=== PATIENT | male | born 1985 | race Caucasian/White ===

== ENCOUNTER 2024-08-22 13:02 | Emergency (ER) | payer OTHER, SELFPAY ==
[2024-08-22 13:03] VITALS: BP 164/117; PULSE 102; RESP 16; TEMP 36.9; O2SAT 100; BMI 35.6
--- NOTE | 2024-08-22 13:09 | RAD_ITS ---
HISTORY: chest pain. TECHNIQUE: XR Chest 1 View. COMPARISON: None. FINDINGS: CARDIOMEDIASTINAL BORDERS: Cardiac silhouette within normal limits in size. Mediastinal contour unremarkable. LUNGS: Radiographically clear. PLEURA: No pleural effusion or pneumothorax seen. OSSEOUS STRUCTURES: Unremarkable. RAD/Chest 1 View (Portable) IMPRESSION: No acute cardiopulmonary process identified. Electronically Signed: Jamilah Price MD at 14:49 EDT ,
--- NOTE | 2024-08-22 13:09 | EKG12_ITS ---
Test Reason : CP Blood Pressure : / mmHG Vent. Rate : 108 BPM Atrial Rate : 108 BPM P-R Int : 134 ms QRS Dur : 096 ms QT Int : 342 ms P-R-T Axes : 056 056 010 degrees QTc Int : 458 ms Sinus tachycardia Otherwise normal ECG Confirmed by Pablo Horne ([id number]), editor book EMERY MACHADO ([id number]) on 08/23/2024 1:35:51 PM Referred By: Confirmed By:Pablo Horne
[2024-08-22 13:28] LABS: Absolute Lymphocyte Count 1.93 X10^3/uL (0.83-4.51); Basophil# 0.06 X10^3/uL; Basophil% 1.1 % (0-1); Eosinophil# 0.12 X10^3/uL; Eosinophils% 2.2 % (0-5); Hematocrit 47.1 % (40-54); Hemoglobin 15.5 g/dL (13.0-16.5); Lymphocyte # 1.93 X10^3/ul (0.83-4.51); Lymphocyte % 35.3 % (19-41); Mean Corp Hgb Conc 32.9 g/dL (32-36); Mean Corpuscular Hgb 27.3 pg (27.0-32.0); Mean Corpuscular Volume 82.9 fL (80-94); Mean Platelet Vol. 10.1 fl (6.2-12.0); Monocyte% 5.5 % (0-10); NRBC Flagged by Analyzer 0 % (0-5); Neutrophil # 3.03 X10^3/uL (2.7-7.7); Neutrophil % 55.5 % (47-70); Platelet Count 213 K/mm3 (150-450); RBC Distribution Width CV 12.2 % (11.6-14.6); RBC Distribution Width SD 36.6 fl (35.1-43.9); Red Blood Count 5.68 M/mm3 (4.6-6.2); White Blood Count 5.5 K/mm3 (4.4-11.0)
[2024-08-22 13:59] LABS: Anion Gap 6 (5-15); BUN 12 mg/dL (7-18); Calcium,Total 9.8 mg/dL (8.5-10.1); Chloride 104 mmol/L (98-107); Creatinine, Serum 1.09 mg/dL (0.70-1.30); EST Glomerular Filtration Rate 80 mL/min (>60); Est Glom Filt Rate - Afr Amer 97 mL/min (>60); Estimated Creatinine Clearance 111.96 ml/min; Glucose 102 mg/dL (74-106); Potassium 3.9 mmol/L (3.5-5.1); Sodium Level 139 mmol/L (136-145); Troponin-I HS (w/2H Reflex) < 3 pg/mL (3.0-78.0)
[2024-08-22 14:02] VITALS: BP 140/74; PULSE 78; RESP 16; O2SAT 100
--- NOTE | 2024-08-22 14:31 | ED.VIS.CHEST ---
HPI History of Present Illness Chief Complaint: Chest Pain Informant: patient Narrative Narrative: 39-year-old healthy male presents with chest discomfort that he states is retrosternal nonradiating nonpleuritic and difficult to describe. He states he was walking to a restaurant about an hour or so prior to arrival, with a friend to have lunch prior to leaving to go home which is about 3 hours away. He started having this chest discomfort and lightheadedness which he has had in the past with panic attacks, he states the discomfort is mostly gone but now if he leans forward he gets worse. He states he thinks he is okay but before he drove home [address] he wanted to get checked out to make sure. He denies any recent illness or obvious explanation for this otherwise. He does have reflux occasionally in the past but not necessarily feeling like this. He denies any arm or back or jaw discomfort, diaphoresis, dyspnea, nausea or vomiting. No recent leg pain or swelling. No palpitations or near syncope. [facility] Medical History (Updated 08/22/24 @ 14:[address] Manohar Irizarry MD) Anxiety Allergy/AdvReac Type Severity Reaction Status Date / Time No Known Allergies Allergy Verified 08/22/24 13:06 Social History (Updated 08/22/24 @ 14:[address] Manohar Irizarry MD) Smoking Status: Never smoker ROS ROS ED Constitutional Constitutional ED: Denies chills or fever(s) Eyes Eyes: Denies change in vision or diplopia ENT ENT ED: Denies rhinorrhea or sore throat Cardiovascular Cardiovascular: Reports chest pain and lightheadedness; Denies palpitations or syncope Respiratory/Chest Respiratory/Chest: Denies cough or dyspnea Gastrointestinal Gastrointestinal: Denies abdominal pain, diarrhea, nausea or vomiting Genitourinary Genitourinary ED: Denies dysuria or hematuria Musculoskeletal Musculoskeletal: Denies back pain or neck pain Integumentary Denies abscess or rash Neurologic Neurologic: Denies headache(s), paresthesias or weakness Psychiatric Psychiatric: Reports anxiety; Denies suicidal thoughts EXAM Physical Exam Const Vital Signs: 08/22/24 13:03 Temperature 98.4 F Temperature Source Oral Pulse Rate 102 H Respiratory Rate 16 Blood Pressure 164/117 H Blood Pressure Mean 132 Pulse Ox 100 Oxygen Delivery Method Room Air Positive well nourished and well developed General Appearance ED: well developed and NAD HEENT Reports moist mucous membranes normocephalic and atraumatic Eyes PERRL and EOMs intact bilaterally Neck full ROM and supple Resp normal respiratory effort and clear to auscultation bilaterally Cardio regular rate, regular rhythm and no murmurs Rate: Negative for tachycardic GI non-tender and non-distended Auscultation: normoactive bowel sounds Palpation: soft Back/Spine no CVA tenderness General Back: other FROM Extremity normal to inspection General Extremety ED: Negative for edema, pulses abnormal or tenderness General Extremity: Negative for edema or pulses abnormal Neuro oriented x3, CN's II-XII intact bilaterally and no sensory deficits noted Sensorium / Orientation: awake and alert Motor Exam: strength 5/5 throughout Psych Psych Narrative: A little anxious but otherwise normal mental status and logical goal directed thoughts Skin no rashes or lesions noted and no wounds Heart Score History: Slightly/Non-Suspicious ECG: Normal Age: </= 45 years Risk Factors: No Risk Factors Troponin: </= Normal Limit Score: 0 MDM MDM MDM Narrative Medical decision making narrative: 1 view chest x-ray my interpretation shows a narrow mediastinum, his EKG is normal and initial troponin is negative/normal, it is less than 3, making acute coronary syndrome very unlikely, however given the fact that he presents just after the onset of symptoms, as I discussed with him the best course of action would be to do a repeat troponin 2 hours after the initial draw according to our cardiology protocol for high-sensitivity troponins. With shared decision making, the patient states he understands that is best but accepts a higher risk of cardiac etiology and wanting to go home prior to getting that blood draw. States he feels fine once he sits forward he gets a little discomfort but it is mild. It is possible this is reflux related he is amenable to getting Pepcid and a GI cocktail prior to discharge. His labs are otherwise normal. He was a little tachycardic in triage but I think this was due to anxiety, which she admits to, his blood pressure is 138/90 right now and his tachycardia is resolved and I do not think this is pulmonary embolus. He does understand that there is a possibility of transient ectopy or dysrhythmia that could cause the symptoms and he needs to follow-up as an outpatient with his doctor when he gets home. Lab Data Attestation: I reviewed the patient's lab results. Labs: Laboratory Results - last 24 hr 08/22/24 13:20 WBC 5.5 RBC 5.68 Hgb 15.5 Hct 47.1 MCV 82.9 MCH 27.3 MCHC 32.9 RDW Std Deviation 36.6 RDW Coeff of Thom 12.2 Plt Count 213 MPV 10.1 Immature Gran % (Auto) 0.400 Neut % (Auto) 55.5 Lymph % (Auto) 35.3 Fisher % (Auto) 5.5 Eos % (Auto) 2.2 Baso % (Auto) 1.1 H Absolute Neuts (auto) 3.0 Absolute Lymphs (auto) 1.93 Nucleated RBC % 0 Sodium 139 Potassium 3.9 Chloride 104 Carbon Dioxide 29.0 Anion Gap 6 BUN 12 Creatinine 1.09 Estim Creat Clear Calc 111.96 Est GFR (MDRD) Af Amer 97 Est GFR (MDRD) Non-Af 80 BUN/Creatinine Ratio 11.0 Glucose 102 Calcium 9.8 Troponin I High Sens < 3 L Rhythm Strip Rhythm Strip: Sinus Rhythm Rate: 90 Ectopy: None EKG Initial EKG: Attestation: I personally reviewed and interpreted this EKG as follows: Interpretation: Sinus Rhythm and No Acute Injury Pattern Comments: Normal EKG Prior EKG tracings: not available for review Prior: No Prior Discharge Plan Triage Chief Complaint: Chest Pain ED Provider: Manohar Irizarry Dx/Rx/DC Orders Clinical Impression: Chest pain, unspecified Instructions: ED Chest Pain, Uncertain Cause Primary Care Provider: Reta Quiroz,Out of Referrals: [facility] Doctor,Out of [Primary Care Provider] - 3-5 Days if not improving Print Language: Greenlandic Disposition Disposition: Home, Self Care
[2024-08-22] MEDS: Mag Hydrox/Al Hydrox/Simeth 30 ML UDC PO (14:40)
[2024-08-22] MEDS: Famotidine 20 MG Tablet 40 MG PO (14:40)
[2024-08-22] MEDS: Lidocaine 2% Viscous15 ML UDC 15 ML PO (14:40)
[2024-08-22 15:06] VITALS: BP 154/92; PULSE 71; RESP 18; TEMP 36.7; O2SAT 97
[2024-08-22 15:24] LABS: Reflex Troponin-HS? (from REC) Y
== END 2024-08-22 15:06 | disposition home or self-care (01) ==
LOC: ED 14:38
PROVIDERS: Emergency Provider Emergency Medicine; Visit Provider Emergency Medicine
DX: R07.89 Other chest pain (principal); R42 Dizziness and giddiness; F41.9 Anxiety disorder, unspecified
CPT/HCPCS: 71045; 80048; 84484; 85025; 93005; 99285; A4216